=== PATIENT | male | born 1990 | race Caucasian/White ===

== ENCOUNTER 2018-01-01 00:40 | Emergency (ER) | payer SELFPAY ==
[~2018-01-01] VITALS: Ht 175.3 cm; Wt 90.0 kg
[2018-01-01 00:44] VITALS: BP 159/83; PULSE 91; RESP 18; TEMP 98.6; O2SAT 98
[2018-01-01] MEDS ORDERED: SODIUM CHLOR 0.9% 1000 ML INJ 1,000 ML IV SCH (01:10)
--- NOTE | 2018-01-01 01:14 | PD ---
HPI Chief Complaint: Abdominal Pain Time Seen by Provider: 00:59 Travel History International Travel<30 days: No Contact w/Intl Traveler<30days: No Traveled to known affect area: No History of Present Illness HPI The patient is a 27-year-old male who presents to emergency department for nausea, vomiting, diarrhea, and abdominal cramping. The patient states his symptoms started on Sunday with nausea and vomiting. He subsequently developed bilateral abdominal cramping which is intermittent, sharp , associated with diarrhea. He does note multiple episodes of diarrhea which he describes as loose, watery, without any visible blood. Originally the patient thought he had food poisoning, however, his symptoms have persisted. The patient states his abdominal cramping awakened him from sleep. He does note subjective fevers on Sunday but denies any fever today. Symptoms are moderate. He denies any sick contacts at home or recent international travel. [facility] Past Medical History Medical History: Denies Significant Hx Past Surgical History Narrative Surgical Plastic surgery on the face Social History Tobacco Use: No Allergies-Medications (Allergen,Severity, Reaction): Coded Allergies: No Known Allergies (Unverified , 01/01/18) Review of Systems Except as stated in HPI: all other systems reviewed are Neg General / Constitutional: Positive: Fever (Subjective) Cardiovascular: No: Chest Pain or Discomfort Respiratory: No: Cough, Shortness of Breath Gastrointestinal: Positive: Nausea, Vomiting, Diarrhea, Abdominal Pain Musculoskeletal: No: Myalgias Skin: No Rash Physical Exam Narrative GENERAL: Awake, alert, pleasant 27-year-old male who appears his stated age and is in no acute respiratory distress. SKIN: Focused skin assessment warm/dry. HEAD: Atraumatic. Normocephalic. EYES: Pupils equal and round. No scleral icterus. No injection or drainage. ENT: No nasal bleeding or discharge. Slightly dry mucous membranes. NECK: Trachea midline. No JVD. CARDIOVASCULAR: Regular rate and rhythm. No murmur appreciated. RESPIRATORY: No accessory muscle use. Clear to auscultation. Breath sounds equal bilaterally. GASTROINTESTINAL: Abdomen soft, mild diffuse tenderness but no rebound tenderness, guarding, rigidity. MUSCULOSKELETAL: No obvious deformities. No clubbing. No cyanosis. No edema. NEUROLOGICAL: Awake and alert. No obvious cranial nerve deficits. Motor grossly within normal limits. Normal speech. PSYCHIATRIC: Appropriate mood and affect; insight and judgment normal. Data Data Last Documented VS Vital Signs Date Time Temp Pulse Resp B/P (MAP) Pulse Ox O2 Delivery O2 Flow Rate FiO2 01/01/18 00:44 98.6 91 18 159/83 (108) 98 Orders Orders Complete Blood Count With Diff (01/01/18 01:10) Comprehensive Metabolic Panel (01/01/18 01:10) Lipase (01/01/18 01:10) Iv Access Insert/Monitor (01/01/18 01:10) Ecg Monitoring (01/01/18 01:10) Oximetry (01/01/18 01:10) Sodium Chlor 0.9% 1000 Ml Inj (Ns 1000 M (01/01/18 01:10) Sodium Chloride 0.9% Flush (Ns Flush) (01/01/18 01:15) Famotidine Inj (Pepcid Inj) (01/01/18 01:15) Dicyclomine (Bentyl) (01/01/18 01:15) Ondansetron Odt (Zofran Odt) (01/01/18 01:15) Labs Laboratory Tests Test 01/01/18 01:20 White Blood Count 10.8 TH/MM3 Red Blood Count 5.30 MIL/MM3 Hemoglobin 15.3 GM/DL Hematocrit 45.9 % Mean Corpuscular Volume 86.5 FL Mean Corpuscular Hemoglobin 28.7 PG Mean Corpuscular Hemoglobin Concent 33.2 % Red Cell Distribution Width 11.7 % Platelet Count 261 TH/MM3 Mean Platelet Volume 7.4 FL Neutrophils (%) (Auto) 87.4 % Lymphocytes (%) (Auto) 8.0 % Monocytes (%) (Auto) 4.0 % Eosinophils (%) (Auto) 0.2 % Basophils (%) (Auto) 0.4 % Neutrophils # (Auto) 9.5 TH/MM3 Lymphocytes # (Auto) 0.9 TH/MM3 Monocytes # (Auto) 0.4 TH/MM3 Eosinophils # (Auto) 0.0 TH/MM3 Basophils # (Auto) 0.0 TH/MM3 CBC Comment DIFF FINAL Differential Comment Blood Urea Nitrogen 9 MG/DL Creatinine 1.10 MG/DL Random Glucose 102 MG/DL Total Protein 7.6 GM/DL Albumin 3.8 GM/DL Calcium Level 9.1 MG/DL Alkaline Phosphatase 61 U/L Aspartate Amino Transf (AST/SGOT) 29 U/L Alanine Aminotransferase (ALT/SGPT) 75 U/L Total Bilirubin 0.7 MG/DL Sodium Level 134 MEQ/L Potassium Level 3.7 MEQ/L Chloride Level 100 MEQ/L Carbon Dioxide Level 26.5 MEQ/L Anion Gap 8 MEQ/L Estimat Glomerular Filtration Rate 80 ML/MIN Lipase 124 U/L MDM Medical Decision Making Medical Screen Exam Complete: Yes Emergency Medical Condition: Yes Medical Record Reviewed: Yes Interpretation(s) Laboratory Tests Test 01/01/18 01:20 White Blood Count 10.8 TH/MM3 Red Blood Count 5.30 MIL/MM3 Hemoglobin 15.3 GM/DL Hematocrit 45.9 % Mean Corpuscular Volume 86.5 FL Mean Corpuscular Hemoglobin 28.7 PG Mean Corpuscular Hemoglobin Concent 33.2 % Red Cell Distribution Width 11.7 % Platelet Count 261 TH/MM3 Mean Platelet Volume 7.4 FL Neutrophils (%) (Auto) 87.4 % Lymphocytes (%) (Auto) 8.0 % Monocytes (%) (Auto) 4.0 % Eosinophils (%) (Auto) 0.2 % Basophils (%) (Auto) 0.4 % Neutrophils # (Auto) 9.5 TH/MM3 Lymphocytes # (Auto) 0.9 TH/MM3 Monocytes # (Auto) 0.4 TH/MM3 Eosinophils # (Auto) 0.0 TH/MM3 Basophils # (Auto) 0.0 TH/MM3 CBC Comment DIFF FINAL Differential Comment Blood Urea Nitrogen 9 MG/DL Creatinine 1.10 MG/DL Random Glucose 102 MG/DL Total Protein 7.6 GM/DL Albumin 3.8 GM/DL Calcium Level 9.1 MG/DL Alkaline Phosphatase 61 U/L Aspartate Amino Transf (AST/SGOT) 29 U/L Alanine Aminotransferase (ALT/SGPT) 75 U/L Total Bilirubin 0.7 MG/DL Sodium Level 134 MEQ/L Potassium Level 3.7 MEQ/L Chloride Level 100 MEQ/L Carbon Dioxide Level 26.5 MEQ/L Anion Gap 8 MEQ/L Estimat Glomerular Filtration Rate 80 ML/MIN Lipase 124 U/L Differential Diagnosis Differential diagnosis includes gastroenteritis, enteritis, colitis, food poisoning, dehydration, electrolyte abnormality, atypical pancreatitis, atypical appendicitis. Narrative Course IV was established, labs are drawn and sent, and the patient was placed on cardiac telemetry monitoring and continuous pulse oximetry monitoring. The patient was administered Bentyl, Zofran, Pepcid IV, and 1 L of IV fluids. Laboratory evaluation is unremarkable. White count is normal. LFTs and lipase are unremarkable. The patient has nausea, vomiting, diarrhea, and intermittent abdominal cramping, most likely food poisoning or viral gastroenteritis. The patient will be discharged home on Zofran and Bentyl. School excuse for 2 days. He is advised to drink plenty fluids to stay hydrated and follow-up with a primary physician. He will be provided a copy of his labs at discharge. Diagnosis Primary Impression: Gastroenteritis Patient Instructions: General Instructions Additional Instructions: Medications as directed. Follow-up with your primary physician. School excuse for 2 days. Plenty fluids to stay hydrated. Clear liquid diet and advance as tolerated. Med/Other Pt SpecificInfo: Prescription(s) given Scripts Dicyclomine (Bentyl) 10 Mg Cap 10 MG PO TID Y for Bowel Management, #12 CAP 0 Refills Prov: Ilan Joshua MD 01/01/18 Ondansetron Odt (Zofran Odt) 4 Mg Tab 4 MG SL Q6HR Y for Nausea/Vomiting, #7 TAB 0 Refills Prov: Ilan Joshua MD 01/01/18 Disposition: DISCHARGE HOME Condition: Stable Ilan Joshua MD January 01, 2018 01:14
[2018-01-01] MEDS ORDERED: DICYCLOMINE HCL 10 MG CAP PO ONE (01:15)
[2018-01-01] MEDS ORDERED: ONDANSETRON ODT 4 MG TAB PO ONE (01:15)
[2018-01-01] MEDS ORDERED: FAMOTIDINE 20 MG/2 ML VIAL IV PUSH ONE (01:15)
[2018-01-01] MEDS ORDERED: SODIUM CHLORIDE 0.9% FLUSH 10 ML FLUSH IV FLUSH PRN (01:15)
[2018-01-01 01:31] LABS: AUTOMATED NEUTROPHIL # 9.5 TH/MM3 (1.8-7.7); BASOPHIL % 0.4 % (0.0-2.0); EOSINOPHIL % 0.2 % (0.0-4.0); HEMATOCRIT 45.9 % (39.0-51.0); HEMOGLOBIN 15.3 GM/DL (13.0-17.0); LYMPHOCYTE # 0.9 TH/MM3 (1.0-4.8); MEAN CELL VOLUME 86.5 FL (80.0-100.0); MEAN CORPUSCULAR HEMOGLOBIN 28.7 PG (27.0-34.0); MEAN CORPUSCULAR HGB CONC 33.2 % (32.0-36.0); MEAN PLATELET VOLUME 7.4 FL (7.0-11.0); MONOCYTE # 0.4 TH/MM3 (0-0.9); NEUT % 87.4 % (16.0-70.0); PLATELET COUNT 261 TH/MM3 (150-450); RED CELL DISTRIBUTION WIDTH 11.7 % (11.6-17.2); WHITE BLOOD COUNT 10.8 TH/MM3 (4.0-11.0)
[2018-01-01 01:37] LABS: CHLORIDE 100 MEQ/L (98-107); SODIUM (NA) 134 MEQ/L (136-145)
[2018-01-01 01:40] LABS: ALBUMIN 3.8 GM/DL (3.4-5.0); CALCIUM 9.1 MG/DL (8.5-10.1)
[2018-01-01 01:41] LABS: BICARBONATE 26.5 MEQ/L (21.0-32.0); BLOOD UREA NITROGEN 9 MG/DL (7-18); GLUCOSE,RANDOM 102 MG/DL (74-106)
[2018-01-01 01:43] LABS: ALT (GPT) 75 U/L (12-78); AST (GOT) 29 U/L (15-37)
[2018-01-01 01:44] LABS: GLOMERULAR FILTRATION RATE 80 ML/MIN (>89)
[2018-01-01 01:45] LABS: TOTAL BILIRUBIN ADULT 0.7 MG/DL (0.2-1.0); TOTAL PROTEIN 7.6 GM/DL (6.4-8.2)
[2018-01-01 01:46] LABS: ALKALINE PHOSPHATASE 61 U/L (45-117)
[2018-01-01] MEDS ORDERED: DICY10 PO (01:56)
[2018-01-01] MEDS ORDERED: ZOFR4TAB3 SL (01:56)
[2018-01-01] MEDS ORDERED: PROCHLORPERAZINE INJ 10 MG/2 ML VIAL IV PUSH ONE (02:45)
[2018-01-01] MEDS ORDERED: MORPHINE SULFATE 4 MG/ML INJ IV PUSH ONE (02:45)
[2018-01-01] MEDS ORDERED: SODIUM CHLOR 0.9% 1000 ML INJ 1,000 ML IV ONE (02:45)
[2018-01-01 02:50] VITALS: BP 154/76; PULSE 89; RESP 16; O2SAT 99
[2018-01-01 04:30] VITALS: BP 146/72; PULSE 85; RESP 16; O2SAT 100
[2018-01-01 06:05] VITALS: BP 138/72
== END 2018-01-01 06:07 | disposition home or self-care (01) ==
LOC: PHED 00:40
DX: K52.9 Noninfective gastroenteritis and colitis, unspecified (principal)
CPT/HCPCS: 80053; 83690; 85025; 96361; 96374; 96375; 99284; J0780; J2270; J7030